=== PATIENT | female | born 2000 | race Caucasian/White ===

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

== ENCOUNTER 2019-02-01 19:44 | Emergency (ER) | payer OTHER ==
[~2019-02-01] VITALS: Ht 170.2 cm; Wt 56.7 kg
[2019-02-01 20:32] LABS: BASOPHILS ABSOLUTE AUTO 0.02 K/mm3 (0.00-0.23); BASOPHILS PERCENT AUTO 0 % (0-2); EOSINOPHILS ABSOLUTE AUTO 0.01 K/mm3 (0.00-0.68); EOSINOPHILS PERCENT AUTO 0 % (0-6); Hematocrit 43.2 % (33.0-51.0); Hemoglobin 14.5 g/dL (11.5-16.0); IMMATURE GRAN ABSOLUTE AUTO 0.03 K/mm3 (0.00-0.10); IMMATURE GRAN PERCENT AUTO 1 % (0-1); LYMPHOCYTES ABSOLUTE AUTO 1.57 K/mm3 (0.84-5.20); LYMPHOCYTES PERCENT AUTO 26 % (21-46); MONOCYTES ABSOLUTE AUTO 0.34 K/mm3 (0.16-1.47); MONOCYTES PERCENT AUTO 6 % (4-13); Mean Corpuscular HGB Conc 33.6 g/dL (31.5-36.5); Mean Corpuscular Volume 93 fL (80-100); Mean Platelet Volume 9.1 fL (9.1-12.4); NEUTROPHILS ABSOLUTE AUTO 3.99 K/mm3 (1.96-9.15); NEUTROPHILS PERCENT AUTO 67 % (41-73); Platelet Count 349 K/mm3 (150-400); RDW Coefficient Variation 11.9 % (11.7-14.2); RDW Standard Deviation 40.6 fL (35.1-46.3); Red Blood Cell Count 4.67 M/mm3 (3.80-5.20); White Blood Cell Count 5.96 K/mm3 (4.00-11.30)
[2019-02-01 20:50] LABS: Alanine Aminotransfer (ALT/SGP 16 U/L (12-78); Albumin/Globulin Ratio 0.9 (0.8-1.8); Alk Phos 43 U/L (50-136); Anion Gap 10 mmol/L (6-16); Aspartate Aminotrans (AST/SGOT 22 U/L (12-37); Bilirubin, Total 0.5 mg/dL (0.1-1.0); Blood Urea Nitrogen 11 mg/dL (8-24); Bun/Creatinine Ratio 16.8 (12.0-20.0); CO2, Blood 22 mmol/L (21-32); Calcium, Blood 9.9 mg/dL (8.5-10.1); Chloride, Blood 104 mmol/L (98-108); Creatinine, Blood 0.66 mg/dL (0.40-1.00); Globulin, Blood 4.6 g/dL (2.2-4.0); Glomerular Filtration Rate >60 (60-); Glucose, Blood 95 mg/dL (70-99); Potassium, Blood 3.5 mmol/L (3.5-5.5); Sodium, Blood 136 mmol/L (136-145); Total Protein, Blood 8.6 g/dL (6.4-8.2); Valproic Acid 131.5 ug/mL (50.0-100.0)
[2019-02-01] MEDS ORDERED: LAMOTRIGINE200 MG PO (21:11)
[2019-02-01] MEDS ORDERED: DIVA500ER PO (21:11)
[2019-02-01] MEDS ORDERED: Tri-Sprintec1 EACH PO (21:11)
[2019-02-01] MEDS ORDERED: Diastat2.5 MG PR (23:17)
[2019-02-01] MEDS ORDERED: ONDA4ODT MM (23:19)
== END 2019-02-01 23:37 | disposition home or self-care (01) ==
LOC: ER 19:44
PROVIDERS: Physician Assistant
DX: G40.909 Epilepsy, unspecified, not intractable, without status epilepticus (principal); Z88.0 Allergy status to penicillin; Z88.8 Allergy status to other drugs, medicaments and biological substances; Z79.899 Other long term (current) drug therapy
CPT/HCPCS: 36415; 80053; 80164; 80175; 84703; 85025; 96361; 96374; 96375; 99284-25; A9270-GY; J2060; J2405; J7030

== ENCOUNTER 2020-12-19 17:27 | Emergency (ER) | payer OTHER ==
[~2020-12-19] VITALS: Ht 170.2 cm; Wt 56.7 kg
[~2020-12-19 17:27] MED LIST changes: +DIVA500ER PO; +Diastat2.5 MG PR; +LAMOTRIGINE200 MG PO; +Tri-Sprintec1 EACH PO
== END 2020-12-19 20:03 | disposition home or self-care (01) ==
LOC: ER 17:27
DX: S91.341A Puncture wound with foreign body, right foot, initial encounter (principal); W26.8XXA Contact with other sharp object(s), not elsewhere classified, initial encounter; W45.8XXA Other foreign body or object entering through skin, initial encounter; Y92.009 Unspecified place in unspecified non-institutional (private) residence as the place of occurrence of the external cause; Z88.0 Allergy status to penicillin
CPT/HCPCS: 10120; 73630; 90471; 90714; 99283-25

== ENCOUNTER 2021-04-24 19:09 | Inpatient (IN) | payer OTHER ==
[~2021-04-24] VITALS: Ht 165.1 cm; Wt 59.0 kg
[2021-04-24 19:37] LABS: BASOPHILS ABSOLUTE AUTO 0.05 K/mm3 (0.00-0.23); BASOPHILS PERCENT AUTO 0 % (0-2); EOSINOPHILS ABSOLUTE AUTO 0.02 K/mm3 (0.00-0.68); EOSINOPHILS PERCENT AUTO 0 % (0-6); Hematocrit 38.2 % (33.0-51.0); Hemoglobin 12.7 g/dL (11.5-16.0); Mean Corpuscular HGB 30.9 pg (26.0-34.0); Mean Corpuscular HGB Conc 33.2 g/dL (31.5-36.5); Mean Corpuscular Volume 93 fL (80-100); Mean Platelet Volume 9.3 fL (9.1-12.4); Platelet Count 328 K/mm3 (150-400); RDW Coefficient Variation 12.5 % (11.7-14.2); RDW Standard Deviation 42.6 fL (35.1-46.3); Red Blood Cell Count 4.11 M/mm3 (3.80-5.20)
[2021-04-24 19:38] LABS: IMMATURE GRAN ABSOLUTE AUTO 0.07 K/mm3 (0.00-0.10); IMMATURE GRAN PERCENT AUTO 1 % (0-1); LYMPHOCYTES PERCENT AUTO 49 % (21-46); MONOCYTES ABSOLUTE AUTO 0.73 K/mm3 (0.16-1.47); MONOCYTES PERCENT AUTO 6 % (4-13); NEUTROPHILS ABSOLUTE AUTO 5.83 K/mm3 (1.96-9.15); NEUTROPHILS PERCENT AUTO 45 % (41-73)
[2021-04-24 20:04] LABS: Ethanol (Alcohol), Blood, Med <3 mg/dL
[2021-04-24 20:05] LABS: Alanine Aminotransfer (ALT/SGP 66 U/L (12-78); Albumin, Blood 3.1 g/dL (3.4-5.0); Albumin/Globulin Ratio 0.7 (0.8-1.8); Alk Phos 41 U/L (50-136); Anion Gap 10 mmol/L (6-16); Aspartate Aminotrans (AST/SGOT 138 U/L (12-37); Bilirubin, Total 0.3 mg/dL (0.1-1.0); Blood Urea Nitrogen 8 mg/dL (8-24); Bun/Creatinine Ratio 10.3 (12.0-20.0); CO2, Blood 22 mmol/L (21-32); Calcium, Blood 8.8 mg/dL (8.5-10.1); Chloride, Blood 105 mmol/L (98-108); Creatinine, Blood 0.78 mg/dL (0.40-1.00); Globulin, Blood 4.4 g/dL (2.2-4.0); Glomerular Filtration Rate >60 (60-); Glucose, Blood 152 mg/dL (70-99); Potassium, Blood 3.4 mmol/L (3.5-5.5); Sodium, Blood 137 mmol/L (136-145); Total Protein, Blood 7.5 g/dL (6.4-8.2)
[2021-04-25 06:07] LABS: Source, Urine Clean Catch
[2021-04-25 06:12] LABS: Appearance, Urine Hazy (Clear); Bilirubin, Urine Neg (Neg); Blood, Urine 5+ (Neg); Color, Urine Yellow (P-Yellow); Glucose Qualitative, Urine Neg (Neg); Ketones, Urine Neg (Neg); Leukocyte Esterase, Urine Neg (Neg); Nitrite, Urine Neg (Neg); Protein, Urine 2+ (Neg); Urobilinogen, Urine NORM (Normal)
[2021-04-25 06:20] LABS: Bacteria Rare /hpf; Red Blood Cells, Urine TNTC /hpf (0-2); Squamous Epithelial Cells Few /hpf (Few); White Blood Cells, Urine Rare /hpf (0-5)
--- NOTE | 2021-04-25 06:45 | NUR ---
ALERT AND ORIENTED X'S 4. COMPLAINS OF PAIN WHEN REPOSITIONED. MEDICATED FOR PAIN MANAGEMENT, EFFECTIVE REIEF. SPICA SPLINT TO LEFT HAND AND SHORT LEG SPLINT INTACT TO RLE. ABLE TO MOVE FINGERS AND TOES DENIES NUMBNESS AND TINGLING, CAP REFILL LESS THAN 2 SECONDS[address] PURWICK CATH IN PLACE, RECEIVED 200ML. SAFETY MAINTAINED, CALL JAY IN REACH.
[2021-04-25 10:12] LABS: BASOPHILS ABSOLUTE AUTO 0.01 K/mm3 (0.00-0.23); BASOPHILS PERCENT AUTO 0 % (0-2); EOSINOPHILS PERCENT AUTO 0 % (0-6); Hematocrit 30.3 % (33.0-51.0); Hemoglobin 10.3 g/dL (11.5-16.0); IMMATURE GRAN ABSOLUTE AUTO 0.02 K/mm3 (0.00-0.10); IMMATURE GRAN PERCENT AUTO 0 % (0-1); LYMPHOCYTES ABSOLUTE AUTO 1.18 K/mm3 (0.84-5.20); LYMPHOCYTES PERCENT AUTO 17 % (21-46); MONOCYTES ABSOLUTE AUTO 0.87 K/mm3 (0.16-1.47); MONOCYTES PERCENT AUTO 12 % (4-13); Mean Corpuscular HGB 31.1 pg (26.0-34.0); Mean Corpuscular Volume 92 fL (80-100); Mean Platelet Volume 8.9 fL (9.1-12.4); NEUTROPHILS ABSOLUTE AUTO 4.97 K/mm3 (1.96-9.15); NEUTROPHILS PERCENT AUTO 71 % (41-73); Platelet Count 196 K/mm3 (150-400); RDW Coefficient Variation 12.7 % (11.7-14.2); RDW Standard Deviation 42.5 fL (35.1-46.3); Red Blood Cell Count 3.31 M/mm3 (3.80-5.20); White Blood Cell Count 7.05 K/mm3 (4.00-11.30)
[2021-04-25 10:32] LABS: Alanine Aminotransfer (ALT/SGP 70 U/L (12-78); Albumin, Blood 2.8 g/dL (3.4-5.0); Albumin/Globulin Ratio 0.7 (0.8-1.8); Alk Phos 29 U/L (50-136); Anion Gap 7 mmol/L (6-16); Aspartate Aminotrans (AST/SGOT 112 U/L (12-37); Bilirubin, Total 0.3 mg/dL (0.1-1.0); Blood Urea Nitrogen 10 mg/dL (8-24); CO2, Blood 29 mmol/L (21-32); Calcium, Blood 8.4 mg/dL (8.5-10.1); Chloride, Blood 105 mmol/L (98-108); Creatinine, Blood 0.67 mg/dL (0.40-1.00); Globulin, Blood 3.8 g/dL (2.2-4.0); Glomerular Filtration Rate >60 (60-); Glucose, Blood 106 mg/dL (70-99); Potassium, Blood 3.9 mmol/L (3.5-5.5); Sodium, Blood 141 mmol/L (136-145); Total Protein, Blood 6.6 g/dL (6.4-8.2)
--- NOTE | 2021-04-25 13:30 | NUR ---
CBD PT REPORTS TAKING CBD PRODUCTS TO MANAGE SEIZUER ACTIVITY. PT'S FATHER BROUGHT THE CBD PRODUCT SHE USES AT HOME AND PT TOOK IT AT 1130. SHE DID NOT NOTIFY STAFF UNTIL AFTER TAKING IT. EDUCATION PROVIDED TO NOTIFY STAFF PRIOR TO TAKING SUPPLEMENTS AND ABOUT POTENTIAL RISK FOR INTERACTION WITH OTHER MEDICATION.
--- NOTE | 2021-04-25 15:35 | NUR ---
PT WAS ABLE TO GET UP TO THE CHAIR WITH THERAPY. SHE IS A 1 PERSON ASSIST. WILL CONTINUE TO ENCOURAGE SAFETY DURING MOBILITY. PT EDUCATED TO CALL STAFF FOR ASSISTANCE WHEN OOB.
--- NOTE | 2021-04-25 18:23 | NUR ---
SHIFT SUMMARY PAIN HAS BEEN MANAGED WITH PO PAIN MEDICATION. PT WAS ABLE TO GET OOB WITH THERAPY TODAY. SHE IS A 1 ASSIST WITH GAIT BELT AND WALKER. VSS. WILL MONITOR UNTIL REPORT TO MABLE HARRY.
--- NOTE | 2021-04-25 21:11 | NUR ---
PT INSISTING THAT SHE TAKE LAMOTRIGINE THIS PM, EDUCATED THAT SHE HAD ALREADY BEEN GIVEN A DOSE AT APPROX 1130AM BY ANOTHER RN. CALLED HOSPITALIST AND RECIEVED ORDER FOR PATIENT TO TAKE LAMOTRIGINE 200MG ER (HALF OF A DOSE) AT THIS TIME, PT AGREEABLE TO THIS.
[2021-04-26 05:33] LABS: BASOPHILS ABSOLUTE AUTO 0.02 K/mm3 (0.00-0.23); BASOPHILS PERCENT AUTO 0 % (0-2); EOSINOPHILS ABSOLUTE AUTO 0.01 K/mm3 (0.00-0.68); EOSINOPHILS PERCENT AUTO 0 % (0-6); Hematocrit 25.4 % (33.0-51.0); Hemoglobin 8.6 g/dL (11.5-16.0); IMMATURE GRAN ABSOLUTE AUTO 0.02 K/mm3 (0.00-0.10); IMMATURE GRAN PERCENT AUTO 0 % (0-1); LYMPHOCYTES ABSOLUTE AUTO 2.15 K/mm3 (0.84-5.20); LYMPHOCYTES PERCENT AUTO 30 % (21-46); MONOCYTES ABSOLUTE AUTO 0.71 K/mm3 (0.16-1.47); MONOCYTES PERCENT AUTO 10 % (4-13); Mean Corpuscular HGB 31.4 pg (26.0-34.0); Mean Corpuscular HGB Conc 33.9 g/dL (31.5-36.5); Mean Corpuscular Volume 93 fL (80-100); Mean Platelet Volume 9.3 fL (9.1-12.4); NEUTROPHILS ABSOLUTE AUTO 4.34 K/mm3 (1.96-9.15); NEUTROPHILS PERCENT AUTO 60 % (41-73); Platelet Count 156 K/mm3 (150-400); RDW Coefficient Variation 12.8 % (11.7-14.2); RDW Standard Deviation 43.4 fL (35.1-46.3); Red Blood Cell Count 2.74 M/mm3 (3.80-5.20); White Blood Cell Count 7.25 K/mm3 (4.00-11.30)
[2021-04-26 05:57] LABS: Albumin, Blood 2.4 g/dL (3.4-5.0); Anion Gap 8 mmol/L (6-16); Blood Urea Nitrogen 7 mg/dL (8-24); Bun/Creatinine Ratio 10.9 (12.0-20.0); CO2, Blood 25 mmol/L (21-32); Calcium, Blood 8.2 mg/dL (8.5-10.1); Chloride, Blood 106 mmol/L (98-108); Creatinine, Blood 0.64 mg/dL (0.40-1.00); Glomerular Filtration Rate >60 (60-); Glucose, Blood 84 mg/dL (70-99); Phosphorus, Blood 2.1 mg/dL (2.5-4.9); Potassium, Blood 3.2 mmol/L (3.5-5.5); Sodium, Blood 139 mmol/L (136-145)
--- NOTE | 2021-04-26 06:00 | NUR ---
CALLED HOSPITALIST AT APPROX 0430 AFTER NOTICING SLIGHT SWELLING IN PT ABDOMEN AND R FLANK AREA, DR SINCLAIR ORDERED 500ML BOLUS, CBC, AND RENAL PANEL AT THAT TIME. BLADDER SCAN ALSO PREFORMED, SHOWING NO RESIDUAL.
--- NOTE | 2021-04-26 06:29 | NUR ---
SHIFT SUMMARY A/OX4. VITAL SIGNS REMAIN STABLE, SLIGHTLY HYPOTENSIVE THIS SHIFT. CALLED HOSPITALIST THIS SHIFT ABOUT INCREASED SWELLING IN ABDOMEN AND FLANK AREA. LABS DRAWN AT THAT TIME, AND 500ML BOLUS OF NS GIVEN PER DR ORDER. REPEAT CT OF ABDOMEN ORDERED FOR TODAY. VOIDING WELL. MAXIMUM ASSIST WITH STAND PIVOT TO B[facility]. PAIN MANAGED PER EMAR. WILL REPORT TO ONCOMING RN.
--- NOTE | 2021-04-26 11:48 | NUR ---
CURRENTLY WORKING WITH OT.
--- NOTE | 2021-04-26 11:49 | NUR ---
1124 DR. TINSLEY NOTIFIED OF PATIENT'S REPORT NOT WANTING TO EAT SHE WAS NOT WANTING TO HAVE A DIFFICULT BM, ALSO REPORTED THAT SHE WENT TO USE BEDSIDE COMMODE BUT SHE DID NOT HAVE A BM, WANTING STOOL SOFTENER, DR. TINSLEY SAID " I WILL ORDER SOMETHING".
--- NOTE | 2021-04-26 11:52 | NUR ---
[address] Terrell TOSCANO, NO NEW ORDER RECEIVED.
[2021-04-26 15:29] LABS: BASOPHILS ABSOLUTE AUTO 0.01 K/mm3 (0.00-0.23); BASOPHILS PERCENT AUTO 0 % (0-2); EOSINOPHILS PERCENT AUTO 0 % (0-6); Hematocrit 25.6 % (33.0-51.0); Hemoglobin 8.8 g/dL (11.5-16.0); IMMATURE GRAN ABSOLUTE AUTO 0.02 K/mm3 (0.00-0.10); IMMATURE GRAN PERCENT AUTO 0 % (0-1); LYMPHOCYTES ABSOLUTE AUTO 1.36 K/mm3 (0.84-5.20); LYMPHOCYTES PERCENT AUTO 19 % (21-46); MONOCYTES ABSOLUTE AUTO 0.74 K/mm3 (0.16-1.47); MONOCYTES PERCENT AUTO 10 % (4-13); Mean Corpuscular HGB 31.7 pg (26.0-34.0); Mean Corpuscular HGB Conc 34.4 g/dL (31.5-36.5); Mean Corpuscular Volume 92 fL (80-100); Mean Platelet Volume 9.2 fL (9.1-12.4); NEUTROPHILS PERCENT AUTO 71 % (41-73); Platelet Count 164 K/mm3 (150-400); RDW Coefficient Variation 12.5 % (11.7-14.2); RDW Standard Deviation 42.3 fL (35.1-46.3); Red Blood Cell Count 2.78 M/mm3 (3.80-5.20); White Blood Cell Count 7.33 K/mm3 (4.00-11.30)
--- NOTE | 2021-04-26 19:01 | NUR ---
SHIFT SUMMARY: PATIENT WAS ABLE TO GET UP TODAY WITH OT & PT. BEEN ON CHAIR THIS AFTERNOON. ABLE TO TO STAND UP BY HERSELF ON SBA X 1 WITHOUT PROBLEMS.COMPLAINTS OF NAUSEA AT 1830, PHENERGAN 25 MG IV PRN ORDERED BY DR. Gudelia TINSLEY, WAITING FOR PHARMACY VERIFICATION SO PT. CAN HAVE IT. REPORT GIVEN TO KELLY HARRY FOR CONTINUITY OF CARE.
[2021-04-27 04:28] LABS: BASOPHILS ABSOLUTE AUTO 0.01 K/mm3 (0.00-0.23); BASOPHILS PERCENT AUTO 0 % (0-2); EOSINOPHILS ABSOLUTE AUTO 0.01 K/mm3 (0.00-0.68); EOSINOPHILS PERCENT AUTO 0 % (0-6); Hematocrit 24.9 % (33.0-51.0); Hemoglobin 8.5 g/dL (11.5-16.0); IMMATURE GRAN ABSOLUTE AUTO 0.02 K/mm3 (0.00-0.10); IMMATURE GRAN PERCENT AUTO 0 % (0-1); LYMPHOCYTES ABSOLUTE AUTO 1.87 K/mm3 (0.84-5.20); LYMPHOCYTES PERCENT AUTO 24 % (21-46); MONOCYTES ABSOLUTE AUTO 0.72 K/mm3 (0.16-1.47); MONOCYTES PERCENT AUTO 9 % (4-13); Mean Corpuscular HGB 31.3 pg (26.0-34.0); Mean Corpuscular HGB Conc 34.1 g/dL (31.5-36.5); Mean Corpuscular Volume 92 fL (80-100); Mean Platelet Volume 9.2 fL (9.1-12.4); NEUTROPHILS ABSOLUTE AUTO 5.19 K/mm3 (1.96-9.15); NEUTROPHILS PERCENT AUTO 66 % (41-73); Platelet Count 171 K/mm3 (150-400); RDW Coefficient Variation 12.7 % (11.7-14.2); RDW Standard Deviation 41.7 fL (35.1-46.3); Red Blood Cell Count 2.72 M/mm3 (3.80-5.20); White Blood Cell Count 7.82 K/mm3 (4.00-11.30)
[2021-04-27 05:32] LABS: Anion Gap 7 mmol/L (6-16); Blood Urea Nitrogen 7 mg/dL (8-24); Bun/Creatinine Ratio 11.8 (12.0-20.0); CO2, Blood 27 mmol/L (21-32); Calcium, Blood 8.4 mg/dL (8.5-10.1); Chloride, Blood 105 mmol/L (98-108); Creatinine, Blood 0.59 mg/dL (0.40-1.00); Glomerular Filtration Rate >60 (60-); Glucose, Blood 86 mg/dL (70-99); Potassium, Blood 3.7 mmol/L (3.5-5.5); Sodium, Blood 139 mmol/L (136-145)
[2021-04-27] MEDS ORDERED: HYDR1TAB94 PO (10:10)
--- NOTE | 2021-04-27 14:30 | NUR ---
DISCHARGE PT LEFT VIA WHEELCHAIR WITH DAD. PT PAINFUL WITH MOVEMENT BUT MANAGED WITH ORAL MEDICATION. TOLERATING PO ABLE TO STAND AND TRANSFER TO [facility]. PT HAS WALKER AND CHAIR ORDERED TO PICKUP ON THE WAY HOME. SCRIPTS SENT WITH PATIENT.
--- NOTE | 2021-04-28 12:38 | NUR ---
Received referral from nurse menagerie caretaker (Carmen Fuchs) on 04/27/2021. Patient discharged with orders for home health and elected [facility]. Contacted patient at number provided on demographic sheet to further discuss the above. Spoke with patient's father (Murtaza Solares) who is agreeable to the above. Discussed homebound status definition with patient's father. Patient's father verbalized understanding. Discussed what home health is vs what it is not (in home caregivers/housekeeping). Patient's father verbalized understanding. Discussed the next steps in the process of an initial assessment to determine frequency of visits. Again patient's father verbalized understanding. Offered a chance for patient's father to ask questions regarding the above of which there were none. Gathered all supporting documentation for referral (face sheet, face to face, med list, H&P, discharge summary, and most recent PT assessment) and sent to [facility] for review. No further interventions required. Shannan Patton Referral Liaison
== END 2021-04-27 14:32 | disposition home health service (06) | DRG 965 ==
LOC: ER 19:09 → SURS 22:03
PROVIDERS: Emergency Medicine; Family Medicine; Internal Medicine; ADMIT Surgery
DX: S32.592A Other specified fracture of left pubis, initial encounter for closed fracture (principal); S36.892A Contusion of other intra-abdominal organs, initial encounter; S32.10XA Unspecified fracture of sacrum, initial encounter for closed fracture; S32.591A Other specified fracture of right pubis, initial encounter for closed fracture; G43.909 Migraine, unspecified, not intractable, without status migrainosus; G40.909 Epilepsy, unspecified, not intractable, without status epilepticus; S00.81XA Abrasion of other part of head, initial encounter; D50.0 Iron deficiency anemia secondary to blood loss (chronic); S00.31XA Abrasion of nose, initial encounter; S62.002A Unspecified fracture of navicular [scaphoid] bone of left wrist, initial encounter for closed fracture; S82.891A Other fracture of right lower leg, initial encounter for closed fracture; V13.9XXA Unspecified pedal cyclist injured in collision with car, pick-up truck or van in traffic accident, initial encounter; Z88.1 Allergy status to other antibiotic agents; Z87.891 Personal history of nicotine dependence
CPT/HCPCS: 29125; 29515; 36415; 70450; 71260; 72125; 72170; 73120; 73130; 73552; 73590; 73600; 73610; 73630; 74176; 74177; 80048; 80053; 80069; 81001; 83690; 85025; 93005; 93010; 96374; 96375; 96376; 97110; 97116; 97161; 97166; 97530; 99285-25; A9270; G0480; J0780; J1170; J2270; J2405; J2550; J3010; J3480; J7030; J7040; Q9967

== ENCOUNTER 2023-06-22 11:15 | Observation (INO) | payer OTHER ==
[~2023-06-22] VITALS: Ht 170.2 cm; Wt 54.4 kg
[~2023-06-22 11:15] MED LIST changes: +HYDR1TAB94 PO
[2023-06-22 12:27] LABS: BASOPHILS ABSOLUTE AUTO 0.04 K/mm3 (0.00-0.23); BASOPHILS PERCENT AUTO 1 % (0-2); EOSINOPHILS ABSOLUTE AUTO 0.03 K/mm3 (0.00-0.68); EOSINOPHILS PERCENT AUTO 0 % (0-6); Hematocrit 40.3 % (33.0-51.0); Hemoglobin 13.6 g/dL (11.5-16.0); IMMATURE GRAN ABSOLUTE AUTO 0.02 K/mm3 (0.00-0.10); IMMATURE GRAN PERCENT AUTO 0 % (0-1); LYMPHOCYTES ABSOLUTE AUTO 2.34 K/mm3 (0.84-5.20); LYMPHOCYTES PERCENT AUTO 28 % (21-46); MONOCYTES ABSOLUTE AUTO 0.75 K/mm3 (0.16-1.47); MONOCYTES PERCENT AUTO 9 % (4-13); Mean Corpuscular HGB 29.3 pg (26.0-34.0); Mean Corpuscular HGB Conc 33.7 g/dL (31.5-36.5); Mean Corpuscular Volume 87 fL (80-100); Mean Platelet Volume 8.5 fL (9.1-12.4); NEUTROPHILS ABSOLUTE AUTO 5.15 K/mm3 (1.96-9.15); NEUTROPHILS PERCENT AUTO 62 % (41-73); Platelet Count 322 K/mm3 (150-400); RDW Coefficient Variation 13.8 % (11.7-14.2); RDW Standard Deviation 43.8 fL (35.1-46.3); Red Blood Cell Count 4.64 M/mm3 (3.80-5.20); White Blood Cell Count 8.33 K/mm3 (4.00-11.30)
[2023-06-22 12:57] LABS: Ethanol (Alcohol), Blood, Med <3 mg/dL; Salicylate <1.7 mg/dL (2.8-20.0)
[2023-06-22 13:27] LABS: Alanine Aminotransfer (ALT/SGP 15 U/L (12-78); Albumin, Blood 3.6 g/dL (3.4-5.0); Albumin/Globulin Ratio 0.8 (0.8-1.8); Alk Phos 46 U/L (50-136); Anion Gap 1 mmol/L (6-16); Aspartate Aminotrans (AST/SGOT 13 U/L (12-37); Bilirubin, Total 0.3 mg/dL (0.1-1.0); Blood Urea Nitrogen 9 mg/dL (8-24); Bun/Creatinine Ratio 11.2 (12.0-20.0); CO2, Blood 30 mmol/L (21-32); Calcium, Blood 9.7 mg/dL (8.5-10.1); Chloride, Blood 105 mmol/L (98-108); Globulin, Blood 4.8 g/dL (2.2-4.0); Glomerular Filtration Rate 105 (60-); Glucose, Blood 84 mg/dL (70-99); Sodium, Blood 136 mmol/L (136-145); Total Protein, Blood 8.4 g/dL (6.4-8.2)
[2023-06-22 13:28] LABS: Acetaminophen, Random <2.0 ug/mL (10.0-30.0)
[2023-06-22] MEDS ORDERED: Sertraline HCl 50 MG Tab PO ONE (17:15)
[2023-06-22] MEDS ORDERED: Divalproex Sodium 500 MG TABCR PO SCH (21:00)
[2023-06-22] MEDS ORDERED: Prazosin HCl 1 MG Cap PO SCH (21:00)
[2023-06-22] MEDS ORDERED: Ondansetron 4 MG SoluTab SL ONE (21:40)
[2023-06-23] MEDS ORDERED: Acetaminophen 325 MG TABLET PO ONE (05:40)
[2023-06-23 06:26] LABS: Source, Urine Clean Catch
[2023-06-23 06:30] LABS: Appearance, Urine Clear (Clear); Bilirubin, Urine Neg (Neg); Blood, Urine 2+ (Neg); Color, Urine Yellow (P-Yellow); Glucose Qualitative, Urine Neg (Neg); Ketones, Urine 2+ (Neg); Leukocyte Esterase, Urine 2+ (Neg); Nitrite, Urine Neg (Neg); Protein, Urine 2+ (Neg); Urobilinogen, Urine NORM (Normal)
[2023-06-23 06:42] LABS: Bacteria Few /hpf; Mucus Heavy (0-Heavy); Squamous Epithelial Cells Many /hpf (Few)
[2023-06-23 06:44] LABS: U Amphetamine Screen Not Detected; U Barbituate Screen Not Detected; U Benzodiazapine Screen Not Detected; U Buprenorphine Screen Not Detected; U Cannabinoids Screen DETECTED; U Cocaine Screen Not Detected; U Methadone Screen Not Detected; U Methamphetamine Screen Not Detected; U Opiates Screen Not Detected; U Oxycodone Screen Not Detected; U Phencyclidine Screen Not Detected
[2023-06-23] MEDS ORDERED: Divalproex Sodium 500 MG TABCR PO SCH (09:00)
[2023-06-23] MEDS ORDERED: LamoTRIgine 25 MG Tab PO SCH ×2 (09:00)
[2023-06-23] MEDS ORDERED: LamoTRIgine 100 MG Tab PO SCH (09:00)
[2023-06-23] MEDS ORDERED: Sertraline HCl 100 MG Tab PO SCH (09:00)
[2023-06-23] MEDS ORDERED: Noreth A-ET Estra/FE Fumarate 1/20 Tab PO SCH (09:00)
[2023-06-23 09:19] VITALS: BP 119/89
[2023-06-23] MEDS ORDERED: SERT100 PO (10:54)
[2023-06-23] MEDS ORDERED: PRAZ1 PO (10:54)
== END 2023-06-23 12:40 | disposition home or self-care (01) ==
LOC: ER 11:15 → EOR 14:19
PROVIDERS: Physician Assistant; ADMIT Student in an Organized Health Care Education/Training Program
DX: F43.12 Post-traumatic stress disorder, chronic (principal); R45.851 Suicidal ideations; G40.909 Epilepsy, unspecified, not intractable, without status epilepticus; Z79.899 Other long term (current) drug therapy; Z88.1 Allergy status to other antibiotic agents; Z88.8 Allergy status to other drugs, medicaments and biological substances
CPT/HCPCS: 70450; 80053; 81001; 81025; 82947; 85025; 87077; 87086; 87147; 87186; 99285-25; A9270; G0378; G0480

== ENCOUNTER 2023-09-23 14:14 | Emergency (ER) | payer OTHER ==
[~2023-09-23] VITALS: Ht 167.6 cm; Wt 56.7 kg
[~2023-09-23 14:14] MED LIST changes: +PRAZ1 PO; +SERT100 PO
[2023-09-23] MEDS ORDERED: Ondansetron HCl 2 MG / ML 2ML Vial IV ONE (14:30)
[2023-09-23] MEDS ORDERED: Morphine Sulfate 4 MG/1 ML Injection IV ONE (14:30)
[2023-09-23] MEDS ORDERED: Ketorolac Tromethamine 30mg Vial IV ONE (15:20)
[2023-09-23] MEDS ORDERED: Acetaminophen 500 MG Tab PO ONE (15:20)
[2023-09-23 15:32] VITALS: BP 100/66
[2023-09-23] MEDS ORDERED: ONDA4ODT MM (15:35)
== END 2023-09-23 15:36 | disposition home or self-care (01) ==
LOC: ER 14:14
DX: S06.0X0A Concussion without loss of consciousness, initial encounter (principal); S16.1XXA Strain of muscle, fascia and tendon at neck level, initial encounter; V47.5XXA Car driver injured in collision with fixed or stationary object in traffic accident, initial encounter; Z88.0 Allergy status to penicillin; Z88.8 Allergy status to other drugs, medicaments and biological substances; Z79.899 Other long term (current) drug therapy; G40.909 Epilepsy, unspecified, not intractable, without status epilepticus
CPT/HCPCS: 70450; 72125; A9270; J1885; J2270; J2405

== ENCOUNTER 2024-02-20 10:22 | Emergency (ER) | payer OTHER ==
[~2024-02-20] VITALS: Ht 162.6 cm; Wt 54.4 kg
[~2024-02-20 10:22] MED LIST changes: +TOPIRAMATE ER25 M1 PO; +TRI-MILI 28 TA1 EACH PO
[2024-02-20] MEDS ORDERED: Diphth,Pertuss(Acell),Tet Vac 0.5 ML VIAL IM ONE (10:50)
[2024-02-20 12:22] VITALS: BP 122/66
== END 2024-02-20 12:22 | disposition home or self-care (01) ==
LOC: ER 10:22
DX: S01.21XA Laceration without foreign body of nose, initial encounter (principal); S61.512A Laceration without foreign body of left wrist, initial encounter; X83.8XXA Intentional self-harm by other specified means, initial encounter; Z79.899 Other long term (current) drug therapy; Z88.0 Allergy status to penicillin; Z88.1 Allergy status to other antibiotic agents
CPT/HCPCS: 12001; 99283-25

== ENCOUNTER 2024-06-19 16:25 | Emergency (ER) | payer OTHER ==
[~2024-06-19] VITALS: Ht 167.6 cm; Wt 59.0 kg
[2024-06-19 16:37] VITALS: BP 123/73
[2024-06-19 17:01] LABS: BASOPHILS ABSOLUTE AUTO 0.04 K/mm3 (0.00-0.23); BASOPHILS PERCENT AUTO 1 % (0-2); EOSINOPHILS ABSOLUTE AUTO 0.08 K/mm3 (0.00-0.68); EOSINOPHILS PERCENT AUTO 2 % (0-6); Hematocrit 35.4 % (33.0-51.0); Hemoglobin 12.1 g/dL (11.5-16.0); IMMATURE GRAN ABSOLUTE AUTO 0.02 K/mm3 (0.00-0.10); IMMATURE GRAN PERCENT AUTO 0 % (0-1); LYMPHOCYTES ABSOLUTE AUTO 2.34 K/mm3 (0.84-5.20); LYMPHOCYTES PERCENT AUTO 43 % (21-46); MONOCYTES ABSOLUTE AUTO 0.61 K/mm3 (0.16-1.47); MONOCYTES PERCENT AUTO 11 % (4-13); Mean Corpuscular HGB 28.9 pg (26.0-34.0); Mean Corpuscular HGB Conc 34.2 g/dL (31.5-36.5); Mean Corpuscular Volume 85 fL (80-100); Mean Platelet Volume 8.6 fL (9.1-12.4); NEUTROPHILS ABSOLUTE AUTO 2.32 K/mm3 (1.96-9.15); NEUTROPHILS PERCENT AUTO 43 % (41-73); Platelet Count 265 K/mm3 (150-400); RDW Coefficient Variation 12.9 % (11.7-14.2); RDW Standard Deviation 39.7 fL (35.1-46.3); Red Blood Cell Count 4.18 M/mm3 (3.80-5.20); White Blood Cell Count 5.41 K/mm3 (4.00-11.30)
[2024-06-19 17:27] LABS: Alanine Aminotransfer (ALT/SGP 10 U/L (12-78); Albumin, Blood 3.2 g/dL (3.4-5.0); Albumin/Globulin Ratio 0.7 (0.8-1.8); Alk Phos 37 U/L (50-136); Anion Gap 12 mmol/L (3-11); Aspartate Aminotrans (AST/SGOT 13 U/L (12-37); Beta HCG, Quantitative, Serum <1 mIU/mL (0-3); Bilirubin, Total 0.3 mg/dL (0.1-1.0); Blood Urea Nitrogen 8 mg/dL (8-24); Bun/Creatinine Ratio 12.6 (12.0-20.0); CO2, Blood 23 mmol/L (21-32); Calcium, Blood 9.1 mg/dL (8.5-10.1); Chloride, Blood 105 mmol/L (98-108); Creatinine, Blood 0.63 mg/dL (0.40-1.00); Globulin, Blood 4.7 g/dL (2.2-4.0); Glomerular Filtration Rate 126 (60-); Glucose, Blood 134 mg/dL (70-99); Potassium, Blood 3.6 mmol/L (3.5-5.5); Sodium, Blood 136 mmol/L (136-145); Total Protein, Blood 7.9 g/dL (6.4-8.2)
== END 2024-06-19 16:58 | disposition left against medical advice (07) ==
LOC: ER 16:25
PROVIDERS: Student in an Organized Health Care Education/Training Program
DX: R56.9 Unspecified convulsions (principal); Z53.21 Procedure and treatment not carried out due to patient leaving prior to being seen by health care provider
CPT/HCPCS: 80053; 84702; 85025; 99282

== ENCOUNTER 2025-04-13 06:47 | Emergency (ER) | payer OTHER ==
[~2025-04-13] VITALS: Ht 172.7 cm; Wt 54.4 kg
[2025-04-13 07:33] LABS: Source, Urine Clean Catch
[2025-04-13 07:40] LABS: BASOPHILS ABSOLUTE AUTO 0.05 K/mm3 (0.00-0.23); BASOPHILS PERCENT AUTO 0 % (0-2); EOSINOPHILS ABSOLUTE AUTO 0.05 K/mm3 (0.00-0.68); EOSINOPHILS PERCENT AUTO 0 % (0-6); Hematocrit 36.9 % (33.0-51.0); Hemoglobin 12.2 g/dL (11.5-16.0); IMMATURE GRAN ABSOLUTE AUTO 0.05 K/mm3 (0.00-0.10); IMMATURE GRAN PERCENT AUTO 0 % (0-1); LYMPHOCYTES ABSOLUTE AUTO 3.01 K/mm3 (0.84-5.20); LYMPHOCYTES PERCENT AUTO 22 % (21-46); MONOCYTES ABSOLUTE AUTO 1.21 K/mm3 (0.16-1.47); MONOCYTES PERCENT AUTO 9 % (4-13); Mean Corpuscular HGB Conc 33.1 g/dL (31.5-36.5); Mean Corpuscular Volume 90 fL (80-100); NEUTROPHILS ABSOLUTE AUTO 9.64 K/mm3 (1.96-9.15); NEUTROPHILS PERCENT AUTO 69 % (41-73); NRBC ABSOLUTE 0.00 K/mm3 (0.00-0.02); NRBC Auto 0.0 /100 WBC (0.0-0.2); Platelet Count 284 K/mm3 (150-400); RDW Coefficient Variation 14.4 % (11.7-14.2); RDW Standard Deviation 47.8 fL (35.1-46.3)
[2025-04-13 07:57] LABS: Alanine Aminotransfer (ALT/SGP 14.0 U/L (12-78); Albumin, Blood 2.9 g/dL (3.4-5.0); Albumin/Globulin Ratio 0.7 (0.8-1.8); Anion Gap 10.0 mmol/L (3-11); Aspartate Aminotrans (AST/SGOT 12.0 U/L (12-37); Bilirubin, Total 0.3 mg/dL (0.1-1.0); Blood Urea Nitrogen 5.0 mg/dL (8-24); CO2, Blood 21.0 mmol/L (21-32); Calcium, Blood 8.8 mg/dL (8.5-10.1); Chloride, Blood 109.0 mmol/L (98-108); Creatinine, Blood 0.63 mg/dL (0.40-1.00); Globulin, Blood 4.4 g/dL (2.2-4.0); Glucose, Blood 116.0 mg/dL (70-99); Potassium, Blood 3.3 mmol/L (3.5-5.5); Sodium, Blood 137.0 mmol/L (136-145); Total Protein, Blood 7.3 g/dL (6.4-8.2)
[2025-04-13 08:05] LABS: Bilirubin, Urine Neg (Neg); Color, Urine Yellow (P-Yellow); Glucose Qualitative, Urine Neg (Neg); Ketones, Urine Neg (Neg); Leukocyte Esterase, Urine 1+ (Neg); Protein, Urine Neg (Neg); Specific Gravity, Urine 1.010 (1.003-1.022); Urobilinogen, Urine NORM (Normal)
[2025-04-13] MEDS ORDERED: Ketorolac Tromethamine 15mg Vial IV ONE (08:05)
[2025-04-13 08:06] LABS: Red Blood Cells, Urine 0-2 /hpf (0-2)
[2025-04-13] MEDS ORDERED: LEVO750 PO (10:24)
[2025-04-13 10:30] VITALS: BP 103/75
== END 2025-04-13 10:30 | disposition home or self-care (01) ==
LOC: ER 06:47
PROVIDERS: Student in an Organized Health Care Education/Training Program
DX: J18.9 Pneumonia, unspecified organism (principal); Z88.0 Allergy status to penicillin; Z88.1 Allergy status to other antibiotic agents; Z79.899 Other long term (current) drug therapy
CPT/HCPCS: 71046; 74177; 76705; 80053; 81001; 83690; 84703; 85025; 87086; 96374; 99284-25; A9270; J1885; Q9967